=== PATIENT | female | born 1945 | race Caucasian/White ===

== ENCOUNTER 2024-05-26 10:23 | Emergency (ER) | payer MEDICARE, OTHER ==
[~2024-05-26] VITALS: Ht 162.6 cm; Wt 75.2 kg
[~2024-05-26 10:23] MED LIST: COREG3.125 MG PO; EC ASPIRIN325 MG PO; ELAVIL10 MG PO; JANUVIA100 MG PO; LISINOPRIL2.5 MG PO; PLAVIX75 MG PO; PROTONIX20 M1 PO
[2024-05-26 10:49] VITALS: BP 212/178
[2024-05-26 10:51] VITALS: BP 137/66
[2024-05-26 11:00] VITALS: BP 118/66
[2024-05-26 11:26] LABS: BASO% 0.3 % (0-3); EOS% 2.1 % (0-8); HEMATOCRIT 41.2 % (37.0-47.0); HEMOGLOBIN 13.8 g/dl (12.0-16.0); IMMATURE GRANULOCYTES 0.2 % (0.0-5.0); LYMPH% 18.5 % (15-41); MEAN CORPUSCULAR HGB 31.9 pG CALC (26.0-32.0); MEAN CORPUSCULAR HGB CONC 33.5 g/dL CAL (32.0-36.0); MONO% 8.3 % (2-13); NEUT# 6.16 thou/uL (2.00-7.15); NEUT% 70.6 % (42-76); RED BLOOD COUNT 4.32 mill/uL (4.20-5.60); RED CELL DISTRI WIDTH 12.4 % (11.5-15.5)
[2024-05-26] MEDS ORDERED: KETOROLAC TROMETHAMINE 30 MG/ML SDV IV ONE (11:35)
[2024-05-26] MEDS ORDERED: SODIUM CHLORIDE 0.9% 1,000 ML IV ONE (11:35)
[2024-05-26 11:43] LABS: URINE BLOOD DIPSTICK Moderate (NEGATIVE); URINE GLUCOSE - DIPSTICK Negative (NEGATIVE); URINE KETONE 40 mg/dL (NEGATIVE); URINE LEUK ESTERASE Negative (NEGATIVE); URINE NITRITE - DIPSTICK Negative (Negative); URINE PH 5.5 (4.5-8.0); URINE PROTEIN - DIPSTICK 30 mg/dL (NEG-TRACE); URINE SPECIFIC GRAVITY >=1.030; URINE UROBILINOGEN - DIPSTICK 0.2 E.U./dL (0.2)
[2024-05-26 11:53] LABS: URINE COLOR Dark yellow
[2024-05-26 11:54] LABS: URINE EPITHELIAL CELLS MODERATE EPI/hpf (0-FEW); URINE MUCUS FEW hpf (NONE-FEW)
[2024-05-26 12:06] LABS: MEAN CELL VOLUME 95.4 fL CALC (80.0-100.0)
[2024-05-26 12:12] LABS: ALBUMIN 4.2 g/dL (3.2-5.0); CREATININE 0.8 mg/dL (0.5-1.0); POTASSIUM 3.9 mmol/l (3.5-5.1)
[2024-05-26 12:15] LABS: BILIRUBIN, TOTAL 0.8 mg/dL (0.02-1.3)
[2024-05-26 13:40] VITALS: BP 118/66
[2024-05-26] MEDS ORDERED: metroNIDAZOLE 500 MG/TAB PO ONE (13:40)
[2024-05-26] MEDS ORDERED: CIPROFLOXACIN HCL 500 MG/TAB PO ONE (13:40)
[2024-05-26] MEDS ORDERED: METRONIDAZOLE500 MG PO (13:41)
[2024-05-26] MEDS ORDERED: CIPROFLOXACN500 MG PO (13:41)
[2024-05-26] MEDS ORDERED: DICYCLOMINE HYD10 MG PO (13:55)
== END 2024-05-26 13:46 | disposition home or self-care (01) ==
LOC: ED 10:23
PROVIDERS: Family Medicine
DX: K52.9 Noninfective gastroenteritis and colitis, unspecified (principal)
CPT/HCPCS: Q9967